=== PATIENT | female | born 2000 | race African-American/Black ===

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

== ENCOUNTER 2018-09-21 07:23 | Emergency (ER) | payer MEDICAID ==
[~2018-09-21] VITALS: Ht 160 cm; Wt 81.6 kg
[2018-09-21 08:51] VITALS: BP 126/73
== END 2018-09-21 09:38 | disposition home or self-care (01) ==
LOC: ER 07:23
DX: L02.414 Cutaneous abscess of left upper limb (principal); L02.413 Cutaneous abscess of right upper limb

== ENCOUNTER 2022-07-19 18:13 | Emergency (ER) | payer MEDICAID, OTHER ==
[~2022-07-19] VITALS: Ht 160 cm; Wt 70.1 kg
[2022-07-19 18:54] VITALS: BP 109/63
[2022-07-19] MEDS ORDERED: KETOROLAC TROMETH 30 MG/ML 1ML VIAL IM ONE (20:00)
== END 2022-07-19 20:17 | disposition home or self-care (01) ==
LOC: ER 18:13
DX: S39.012A Strain of muscle, fascia and tendon of lower back, initial encounter (principal); X58.XXXA Exposure to other specified factors, initial encounter; Y93.89 Activity, other specified; Y92.89 Other specified places as the place of occurrence of the external cause; Y99.8 Other external cause status
CPT/HCPCS: J1885